=== PATIENT | female | born 1960 | race Caucasian/White ===

== ENCOUNTER 2022-06-27 07:23 | Day surgery (SDC) | payer MEDICAID ==
[~2022-06-27] VITALS: Ht 157.5 cm; Wt 66.8 kg
[2022-06-27 07:40] VITALS: BP 154/91
[2022-06-27] MEDS ORDERED: FENTANYL CITRATE/PF 50 MCG/1 ML VIAL ONE (07:41)
[2022-06-27] MEDS ORDERED: LIDOcaine Viscous 15ml cup ONE (07:41)
[2022-06-27] MEDS ORDERED: MIDAZolam 1 MG/ML 5ML VIAL ONE (07:41)
[2022-06-27] MEDS ORDERED: NYST1000 PO (07:56)
[2022-06-27] MEDS ORDERED: METH-798 PO (07:56)
[2022-06-27] MEDS ORDERED: METO10TA3 PO (07:56)
[2022-06-27] MEDS ORDERED: AMIO200T61 PO (07:56)
[2022-06-27] MEDS ORDERED: ATOR40TA72 PO (07:56)
[2022-06-27] MEDS ORDERED: METO25TA6 PO (07:56)
[2022-06-27] MEDS ORDERED: OMEP20CA16 PO (07:56)
[2022-06-27] MEDS ORDERED: HYDR-3964 (07:56)
[2022-06-27] MEDS ORDERED: ONDA-104 (07:56)
[2022-06-27] MEDS ORDERED: PROZ10C PO (07:56)
[2022-06-27] MEDS ORDERED: LISI10TA27 PO (07:56)
[2022-06-27] MEDS ORDERED: MEGE400O6 PO (07:56)
[2022-06-27] MEDS ORDERED: AMLO10TA13 PO (07:56)
[2022-06-27 08:50] VITALS: BP 112/90
== END 2022-06-27 09:00 | disposition home or self-care (01) ==
LOC: GI LAB 07:23
PROVIDERS: ATTEND Specialist
DX: Z43.1 Encounter for attention to gastrostomy (principal); I69.359 Hemiplegia and hemiparesis following cerebral infarction affecting unspecified side; Z87.891 Personal history of nicotine dependence
CPT/HCPCS: 99202; J2250; J3010; A5120; A6449